=== PATIENT | female | born 1975 | race Caucasian/White ===

== ENCOUNTER 2018-11-03 08:06 | Outpatient (CLI) | payer OTHER ==
[2018-11-04] MEDS ORDERED: MOTRIN IB200 MG (11:16)
[2018-11-04] MEDS ORDERED: URIN D.S. TABL1 EACH PO (18:17)
[2018-11-04] MEDS ORDERED: KETO10TA2 PO (18:17)
== END 2018-11-03 08:19 | disposition home or self-care (01) ==
LOC: SONOGRAMA 08:06
DX: R10.84 Generalized abdominal pain (principal)

== ENCOUNTER 2018-11-04 11:00 | Emergency (ER) | payer OTHER ==
[~2018-11-04] VITALS: Ht 162.6 cm; Wt 63.0 kg
[2018-11-04] MEDS ORDERED: MOTRIN IB200 MG (11:16)
[2018-11-04] MEDS ORDERED: KETO10TA2 PO (18:17)
[2018-11-04] MEDS ORDERED: URIN D.S. TABL1 EACH PO (18:17)
== END 2018-11-04 19:12 | disposition home or self-care (01) ==
LOC: ER 11:00
DX: R31.0 Gross hematuria (principal); R10.2 Pelvic and perineal pain; K80.20 Calculus of gallbladder without cholecystitis without obstruction